=== PATIENT | female | born 1975 | race Caucasian/White ===

== ENCOUNTER 2016-03-31 20:28 | Emergency (ER) | payer MEDICAID ==
[2014-12-09 13:44] VITALS: Ht 144.8 cm; Wt 58.1 kg
[~2016-03-31] VITALS: Ht 144.8 cm; Wt 58.1 kg
[~2016-03-31 20:28] MED LIST: ANXIETY MED; FOLI-43 PO; LIB10 PO; PRO40 PO; THIA100T13 PO
--- NOTE | 2016-03-31 20:28 | NUR ---
Placed in room 01. To gown for exam. Side rails up. Report given to JOSTIN Red.
--- NOTE | 2016-03-31 20:35 | NUR ---
Patient alert and oriented x 4. Came to ER due to hives which started at 1am. Per patient she is 8 weeks that is why she did not take any medications. Denies headache, vomiting or diarrhea. [place] nauseous at times and believes it is from being pregnnant. No acute distress or SOB at this time. Will continue to monitor.
--- NOTE | 2016-03-31 20:45 | NUR ---
ER Dr. Carmona at bedside examining patient.
[2016-03-31 20:59] VITALS: BP 134/78; PULSE 77; RESP 18; TEMP 98.4; O2SAT 97
[2016-03-31] MEDS ORDERED: DIPHENHYDRAMINE HCL 25 MG CAPSULE PO ONE (21:15)
[2016-03-31 21:34] VITALS: BP 129/77; PULSE 76; RESP 19; TEMP 98.3; O2SAT 98
--- NOTE | 2016-03-31 21:34 | NUR ---
Patient given written and verbal discharge instructions and verbalizes understanding. ER MD discussed with patient the results and treatment provided. Patient in stable condition. No acute distress or SOB noted upon discharge. ID arm band removed. Opportunity for questions provided and answered.
== END 2016-03-31 21:34 | disposition home or self-care (01) ==
LOC: SED 20:28
DX: O26.891 Other specified pregnancy related conditions, first trimester (principal); T78.1XXA Other adverse food reactions, not elsewhere classified, initial encounter; Z88.1 Allergy status to other antibiotic agents; Z3A.08 8 weeks gestation of pregnancy; X58.XXXA Exposure to other specified factors, initial encounter
CPT/HCPCS: 99282; Q0163

== ENCOUNTER 2016-04-29 10:58 | Emergency (ER) | payer MEDICAID ==
[2014-12-09 13:44] VITALS: Ht 144.8 cm; Wt 54.4 kg
[~2016-04-29] VITALS: Ht 144.8 cm; Wt 54.4 kg
--- NOTE | 2016-04-29 11:10 | NUR ---
BROUGHT BACK TO BED 4. PT C/O LEFT LOWER QUADRANT PAIN THAT STARTED THIS AM. 11/25. STATSES SHE IS 12 WEEKS , NO VAGINAL BLEEDING AND HAD A MISSCARRIAGE 6 YEARS. TRIOED TO CALL HER OB MD THIS MORNING BUT HE WAS IN SURGERY SO SHE CAMT TO THE ED.
[2016-04-29 11:20] VITALS: BP 122/77; PULSE 70; RESP 16; TEMP 97.8; O2SAT 98
--- NOTE | 2016-04-29 11:35 | NUR ---
ANTONY PATEL IN TO [facility]
[2016-04-29] MEDS ORDERED: NACL 0.9% 1,000 ML IV ONE (11:41)
[2016-04-29 12:01] LABS: BASOPHILS % (AUTO) 0.2 % (0.0-2.0); EOSINOPHILS # (AUTO) 0.1 K/uL (0.0-0.4); EOSINOPHILS % (AUTO) 0.7 % (0.0-4.0); HEMATOCRIT 35.8 % (36-48); LYMPHOCYTES # (AUTO) 1.4 K/uL (1.0-5.5); LYMPHOCYTES % (AUTO) 17.8 % (20.5-51.5); MEAN CORPUSCULAR HEMOGLOBIN 29 pg (27-31); MEAN CORPUSCULAR HGB CONC 34 % (32-36); MEAN CORPUSCULAR VOLUME 86 fL (79.0-98.0); MONOCYTES # (AUTO) 0.4 K/uL (0.0-1.0); MONOCYTES % (AUTO) 5.2 % (1.7-9.3); NEUTROPHILS # (AUTO) 5.7 K/uL (1.8-7.7); NEUTROPHILS % (AUTO) 76.1 % (40.0-70.0); PLATELET COUNT (AUTO) 253 K/uL (130-430); RED BLOOD CELL COUNT(AUTO) 4.15 MIL/uL (4.2-6.2); RED CELL DISTRIBUTION WIDTH 13.1 % (9.0-15.0); WHITE BLOOD COUNT (AUTO) 7.6 K/uL (4.8-10.8)
[2016-04-29 12:02] LABS: CALCIUM 8.9 mg/dL (8.4-11.0); CREATININE 0.45 mg/dL (0.55-1.30); POTASSIUM 3.6 mmol/L (3.5-5.1)
[2016-04-29 12:07] LABS: ALBUMIN 3.3 g/dL (3.4-4.8); INR 0.9 (0.8-1.2); PROTHROMBIN TIME 10.3 SECS (9.5-12.5); TOTAL BILIRUBIN 0.3 mg/dL (0.0-1.0); TOTAL PROTEIN, SERUM 7.2 g/dL (6.4-8.3)
--- NOTE | 2016-04-29 12:15 | NUR ---
ABD US DONE.
[2016-04-29 12:26] LABS: BILIRUBIN,URINE NEGATIVE (NEGATIVE); CLARITY/URINE CLEAR (CLEAR); COLOR,URINE YELLOW (YELLOW); GLUCOSE,URINE NEGATIVE (NEGATIVE); KETONES,URINE 3+ (NEGATIVE); LEUKOCYTE ESTERASE ,URINE NEGATIVE (NEGATIVE); NITRITE, URINE NEGATIVE (NEGATIVE); PH,URINE 6.5 (5.0-8.0); PROTEIN URINE NEGATIVE (NEGATIVE); UROBILINOGEN,URINE 0.2 (0.2-1.0)
[2016-04-29 12:33] LABS: BLOOD, URINE TRACE (NEGATIVE)
[2016-04-29 13:00] VITALS: TEMP 98
[2016-04-29 13:00] LABS: BACTERIA,URINE FEW /HPF (None Seen); RBC,URINE 0-3 /HPF (0-3); WBC,URINE 0-3 /HPF (0-3)
[2016-04-29 13:01] LABS: MUCUS,URINE 1+ /LPF (None Seen)
--- NOTE | 2016-04-29 13:05 | NUR ---
ER MD BACK IN TO SPEAK TO PT ABOUT HER TEST RESULTS. PLAN TO DISCHARGE.
[2016-04-29 13:18] VITALS: BP 125/64; PULSE 75; RESP 16
--- NOTE | 2016-04-29 13:18 | NUR ---
Patient given written and verbal discharge instructions and verbalizes understanding. ER MD discussed with patient the results and treatment provided. Patient in stable condition. ID arm band removed. No Rx GIVEN Patient educated on pain management and to follow up with PMD. Pain Scale [0/10] at this time. Opportunity for questions provided and answered. pt discharged via private auto with her .
== END 2016-04-29 13:18 | disposition home or self-care (01) ==
LOC: SED 10:58
DX: O26.891 Other specified pregnancy related conditions, first trimester (principal); R10.31 Right lower quadrant pain; R10.11 Right upper quadrant pain; Z88.1 Allergy status to other antibiotic agents; Z3A.12 12 weeks gestation of pregnancy
CPT/HCPCS: 36415; 76700; 76805; 80053; 81000; 83690; 84702; 85025; 85610; 85730; 86901; 99285; J7030

== ENCOUNTER 2016-11-29 15:30 | Emergency (ER) | payer MEDICAID ==
[~2016-11-29] VITALS: Ht 144.8 cm; Wt 57.2 kg
[~2016-11-29 15:30] MED LIST changes: -ANXIETY MED; -FOLI-43 PO; -LIB10 PO
[2016-11-29 15:37] VITALS: BP_SYST 115
[2016-11-29] MEDS ORDERED: ONDANSETRON HCL 4 MG/2 ML VIAL IVP ONE (16:45)
[2016-11-29] MEDS ORDERED: MORPHINE 4 MG/ML INJ. SYRINGE IVP ONE (16:45)
[2016-11-29 16:48] LABS: BILIRUBIN,URINE NEGATIVE (NEGATIVE); BLOOD, URINE 3+ (NEGATIVE); CLARITY/URINE CLEAR (CLEAR); COLOR,URINE AMBER (YELLOW); GLUCOSE,URINE NEGATIVE (NEGATIVE); KETONES,URINE NEGATIVE (NEGATIVE); LEUKOCYTE ESTERASE ,URINE 3+ (NEGATIVE); NITRITE, URINE NEGATIVE (NEGATIVE); PH,URINE 8.5 (5.0-8.0); PROTEIN URINE NEGATIVE (NEGATIVE); UROBILINOGEN,URINE 0.2 (0.2-1.0)
[2016-11-29 16:54] LABS: BASOPHILS % (AUTO) 0.1 % (0.0-2.0); EOSINOPHILS % (AUTO) 0.4 % (0.0-4.0); HEMATOCRIT 34.7 % (36-48); HEMOGLOBIN 11.2 g/dL (12.0-16.0); LYMPHOCYTES # (AUTO) 1.2 K/uL (1.0-5.5); LYMPHOCYTES % (AUTO) 11.6 % (20.5-51.5); MEAN CORPUSCULAR HEMOGLOBIN 28 pg (27-31); MEAN CORPUSCULAR HGB CONC 32 % (32-36); MEAN CORPUSCULAR VOLUME 85 fL (79.0-98.0); MONOCYTES # (AUTO) 0.6 K/uL (0.0-1.0); NEUTROPHILS # (AUTO) 8.6 K/uL (1.8-7.7); NEUTROPHILS % (AUTO) 81.9 % (40.0-70.0); PLATELET COUNT (AUTO) 361 K/uL (130-430); RED BLOOD CELL COUNT(AUTO) 4.07 MIL/uL (4.2-6.2); RED CELL DISTRIBUTION WIDTH 14.9 % (9.0-15.0); WHITE BLOOD COUNT (AUTO) 10.4 K/uL (4.8-10.8)
[2016-11-29 17:10] LABS: CALCIUM 9.2 mg/dL (8.4-11.0); CHLORIDE 106 mmol/L (98-107); GLUCOSE 98 mg/dL (70-99); POTASSIUM 3.3 mmol/L (3.5-5.1); SODIUM SERUM 140 mmol/L (136-145); UREA NITROGEN, BLOOD 10 mg/dL (8-21)
[2016-11-29 17:11] LABS: CREATININE 0.62 mg/dL (0.55-1.30)
[2016-11-29 17:12] LABS: ANION GAP < 3 (5-15); GFR AFRICAN AMERICAN 138 mL/min (>90); PROTHROMBIN TIME 10.4 SECS (9.5-12.5)
[2016-11-29 17:24] LABS: ALANINE AMINOTRANSFERASE 9 U/L (12-78); ALBUMIN 3.1 g/dL (3.4-4.8); ASPARTATE AMINOTRANSFERASE 16 U/L (10-37); TOTAL BILIRUBIN 0.4 mg/dL (0.0-1.0)
[2016-11-29 17:27] LABS: BACTERIA,URINE MODERATE /HPF (None Seen)
[2016-11-29] MEDS ORDERED: POTASSIUM CHLORIDE 20 MEQ/PKT PACKET PO ONE (17:30)
[2016-11-29 20:37] LABS: BASOPHILS % (AUTO) 0.3 % (0.0-2.0); EOSINOPHILS # (AUTO) 0.1 K/uL (0.0-0.4); EOSINOPHILS % (AUTO) 0.6 % (0.0-4.0); HEMATOCRIT 35.6 % (36-48); HEMOGLOBIN 11.5 g/dL (12.0-16.0); LYMPHOCYTES # (AUTO) 1.6 K/uL (1.0-5.5); LYMPHOCYTES % (AUTO) 14.3 % (20.5-51.5); MEAN CORPUSCULAR HEMOGLOBIN 28 pg (27-31); MEAN CORPUSCULAR HGB CONC 32 % (32-36); MEAN CORPUSCULAR VOLUME 86 fL (79.0-98.0); MONOCYTES # (AUTO) 0.8 K/uL (0.0-1.0); MONOCYTES % (AUTO) 7.1 % (1.7-9.3); NEUTROPHILS # (AUTO) 8.7 K/uL (1.8-7.7); NEUTROPHILS % (AUTO) 77.7 % (40.0-70.0); PLATELET COUNT (AUTO) 386 K/uL (130-430); RED BLOOD CELL COUNT(AUTO) 4.13 MIL/uL (4.2-6.2); RED CELL DISTRIBUTION WIDTH 15.1 % (9.0-15.0); WHITE BLOOD COUNT (AUTO) 11.2 K/uL (4.8-10.8)
[2016-11-29 21:15] VITALS: BP_SYST 119
[2016-11-29] MEDS ORDERED: POTASSIUM CHLORIDE 20 MEQ TAB.PRT.SR PO ONE (21:15)
[2016-11-29] MEDS ORDERED: CIPROFLOXACIN HCL 500 MG TABLET PO ONE (21:15)
== END 2016-11-29 21:34 | disposition home or self-care (01) ==
LOC: SED 15:30
DX: O72.2 Delayed and secondary postpartum hemorrhage (principal); Z88.1 Allergy status to other antibiotic agents
CPT/HCPCS: 36415; 74000; 76856; 80053; 81000; 81025; 83970; 85025; 85610; 86886; 86900; 86901; 87086; 87186; 96374; 96375; 99285; J2270; J2405; J7030

== ENCOUNTER 2017-09-21 11:38 | Emergency (ER) | payer MEDICAID ==
[~2017-09-21] VITALS: Ht 144.8 cm; Wt 57.6 kg
[2017-09-21 11:41] VITALS: BP_SYST 119
[2017-09-21 12:56] LABS: BASOPHILS # (AUTO) 0.1 K/uL (0.0-0.2); BASOPHILS % (AUTO) 0.7 % (0.0-2.0); EOSINOPHILS # (AUTO) 0.1 K/uL (0.0-0.4); EOSINOPHILS % (AUTO) 0.7 % (0.0-4.0); HEMATOCRIT 37.3 % (36-48); HEMOGLOBIN 12.6 g/dL (12.0-16.0); LYMPHOCYTES # (AUTO) 1.7 K/uL (1.0-5.5); LYMPHOCYTES % (AUTO) 17.7 % (20.5-51.5); MEAN CORPUSCULAR HEMOGLOBIN 29 pg (27-31); MEAN CORPUSCULAR HGB CONC 34 % (32-36); MEAN CORPUSCULAR VOLUME 86 fL (79.0-98.0); MONOCYTES # (AUTO) 0.5 K/uL (0.0-1.0); NEUTROPHILS # (AUTO) 7.1 K/uL (1.8-7.7); NEUTROPHILS % (AUTO) 75.9 % (40.0-70.0); PLATELET COUNT (AUTO) 352 K/uL (130-430); RED BLOOD CELL COUNT(AUTO) 4.36 MIL/uL (4.2-6.2); RED CELL DISTRIBUTION WIDTH 13.1 % (9.0-15.0); WHITE BLOOD COUNT (AUTO) 9.4 K/uL (4.8-10.8)
[2017-09-21 13:10] LABS: CALCIUM 9.2 mg/dL (8.4-11.0); CREATININE 0.4 mg/dL (0.55-1.30); POTASSIUM 4.1 mmol/L (3.5-5.1)
[2017-09-21 13:12] LABS: PROTHROMBIN TIME 9.7 SECS (9.5-12.5)
[2017-09-21] MEDS ORDERED: ACETAMINOPHEN 500 MG TABLET PO ONE (13:15)
[2017-09-21 13:17] LABS: ALBUMIN 3.5 g/dL (3.4-4.8); TOTAL BILIRUBIN 0.1 mg/dL (0.0-1.0)
[2017-09-21 14:08] VITALS: BP_SYST 120
== END 2017-09-21 14:08 | disposition home or self-care (01) ==
LOC: SED 11:38
DX: O26.891 Other specified pregnancy related conditions, first trimester (principal); R07.89 Other chest pain; M79.602 Pain in left arm; Z88.1 Allergy status to other antibiotic agents; Z88.8 Allergy status to other drugs, medicaments and biological substances; Z79.899 Other long term (current) drug therapy; Z3A.11 11 weeks gestation of pregnancy
CPT/HCPCS: 36415; 80053; 82550-TC; 83880; 84484; 85025; 85610-TC; 85730-TC; 93005; 99285

== ENCOUNTER 2017-10-09 17:32 | Emergency (ER) | payer MEDICAID ==
[~2017-10-09] VITALS: Ht 144.8 cm; Wt 56.7 kg
[2017-10-09 17:36] VITALS: BP_SYST 128
[2017-10-09] MEDS ORDERED: ONDANSETRON 4 MG ODT TAB PO ONE (18:15)
[2017-10-09 18:47] VITALS: BP_SYST 121
== END 2017-10-09 18:47 | disposition home or self-care (01) ==
LOC: SED 17:32
DX: O21.0 Mild hyperemesis gravidarum (principal); Z3A.11 11 weeks gestation of pregnancy; Z88.1 Allergy status to other antibiotic agents; Z88.8 Allergy status to other drugs, medicaments and biological substances; Z79.899 Other long term (current) drug therapy
CPT/HCPCS: 81025; 99283; Q0162

== ENCOUNTER 2018-10-16 18:50 | Emergency (ER) | payer MEDICAID ==
[~2018-10-16] VITALS: Ht 144.8 cm; Wt 53.5 kg
[2018-10-16 19:00] VITALS: BP_SYST 122
[2018-10-16] MEDS ORDERED: NACL 0.9% 1,000 ML IV ONE (19:42)
[2018-10-16 20:15] LABS: BILIRUBIN,URINE NEGATIVE (NEGATIVE); BLOOD, URINE 1+ (NEGATIVE); CLARITY/URINE CLEAR (CLEAR); COLOR,URINE YELLOW (YELLOW); GLUCOSE,URINE NEGATIVE (NEGATIVE); KETONES,URINE NEGATIVE (NEGATIVE); LEUKOCYTE ESTERASE ,URINE NEGATIVE (NEGATIVE); NITRITE, URINE NEGATIVE (NEGATIVE); PROTEIN URINE NEGATIVE (NEGATIVE); UROBILINOGEN,URINE 0.2 (0.2-1.0)
[2018-10-16 20:16] LABS: BASOPHILS % (AUTO) 0.2 % (0.0-2.0); EOSINOPHILS # (AUTO) 0.1 K/uL (0.0-0.4); EOSINOPHILS % (AUTO) 1.3 % (0.0-4.0); HEMATOCRIT 36.6 % (36-48); HEMOGLOBIN 12.1 g/dL (12.0-16.0); LYMPHOCYTES # (AUTO) 1.3 K/uL (1.0-5.5); MEAN CORPUSCULAR HEMOGLOBIN 29 pg (27-31); MEAN CORPUSCULAR HGB CONC 33 % (32-36); MEAN CORPUSCULAR VOLUME 87 fL (79.0-98.0); MONOCYTES # (AUTO) 0.5 K/uL (0.0-1.0); MONOCYTES % (AUTO) 12.7 % (1.7-9.3); NEUTROPHILS # (AUTO) 2.1 K/uL (1.8-7.7); NEUTROPHILS % (AUTO) 52.8 % (40.0-70.0); PLATELET COUNT (AUTO) 233 K/uL (130-430); RED BLOOD CELL COUNT(AUTO) 4.23 MIL/uL (4.2-6.2); RED CELL DISTRIBUTION WIDTH 13.6 % (9.0-15.0); WHITE BLOOD COUNT (AUTO) 3.9 K/uL (4.8-10.8)
[2018-10-16] MEDS ORDERED: MORPHINE 2 MG/ML INJ. SYRINGE IVP ONE (20:30)
[2018-10-16 20:34] LABS: CALCIUM 8.5 mg/dL (8.4-11.0); CREATININE 0.49 mg/dL (0.55-1.30)
[2018-10-16 20:38] LABS: ALBUMIN 3.4 g/dL (3.4-4.8); TOTAL BILIRUBIN 0.2 mg/dL (0.0-1.0)
[2018-10-16 20:42] LABS: POTASSIUM 2.8 mmol/L (3.5-5.1)
[2018-10-16] MEDS ORDERED: ONDANSETRON HCL 4 MG/2 ML VIAL IVP ONE (20:45)
[2018-10-16] MEDS ORDERED: ONDANSETRON HCL 4 MG/2 ML VIAL ONE (20:48)
[2018-10-16] MEDS ORDERED: POTASSIUM CHLORIDE 10 MEQ TAB.PRT.SR PO ONE (21:00)
[2018-10-16 21:01] LABS: RBC,URINE 0-3 /HPF (0-3); WBC,URINE 0-3 /HPF (0-3)
[2018-10-16 21:02] LABS: BACTERIA,URINE FEW /HPF (None Seen); MUCUS,URINE None Seen /LPF (None Seen)
[2018-10-16 22:13] LABS: CALCIUM 7.9 mg/dL (8.4-11.0); CREATININE 0.51 mg/dL (0.55-1.30); POTASSIUM 3.1 mmol/L (3.5-5.1)
[2018-10-16 22:15] VITALS: BP_SYST 124
== END 2018-10-16 22:15 | disposition home or self-care (01) ==
LOC: SED 18:50
DX: E86.0 Dehydration (principal); K52.9 Noninfective gastroenteritis and colitis, unspecified; Z88.1 Allergy status to other antibiotic agents; Z88.8 Allergy status to other drugs, medicaments and biological substances; Z79.899 Other long term (current) drug therapy
CPT/HCPCS: 36415; 80048; 80053; 81000; 81025; 83690; 85025; 85610; 96374; 96375; 99283; J2270; J2405; J7030

== ENCOUNTER 2019-10-31 12:09 | Emergency (ER) | payer MEDICAID ==
[~2019-10-31] VITALS: Ht 144.8 cm; Wt 58.1 kg
[2019-10-31 12:21] VITALS: BP_SYST 121
--- NOTE | 2019-10-31 12:21 | NUR ---
Patient to ER bed 5 to gown for evaluation. Side rails up. Report given to JOSTIN Tesfaye.
--- NOTE | 2019-10-31 12:30 | NUR ---
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 Pt VSS, no distress, no complaints, md to assess.
--- NOTE | 2019-10-31 12:40 | NUR ---
ER at bedside examining patient.
[2019-10-31 12:45] VITALS: BP_SYST 121
--- NOTE | 2019-10-31 15:27 | NUR ---
Patient given written and verbal discharge instructions and verbalizes understanding. ER MD discussed with patient the results and treatment provided. Patient in stable condition. ID arm band removed. Patient educated on pain management and to follow up with PMD. Pain Scale 0/10. Opportunity for questions provided and answered. Medication side effect fact sheet provided.
--- NOTE | 2019-11-03 13:10 | NUR ---
Covid results Patient called requesting results - ID [id number], exam 10/31/19 - results are negative. Pt verbalized complete understanding.
== END 2019-10-31 12:45 | disposition home or self-care (01) ==
LOC: SED 12:09
DX: A08.4 Viral intestinal infection, unspecified (principal); Z20.828 Contact with and (suspected) exposure to other viral communicable diseases; Z88.1 Allergy status to other antibiotic agents; Z79.899 Other long term (current) drug therapy
CPT/HCPCS: 99283; C9803; U0003

== ENCOUNTER 2020-09-12 17:38 | Emergency (ER) | payer OTHER, MEDICAID ==
[~2020-09-12] VITALS: Ht 144.8 cm; Wt 58.1 kg
[2020-09-12 17:48] VITALS: BP_SYST 130
[2020-09-12] MEDS ORDERED: NACL 0.9% 1,000 ML IV ONE (18:45)
[2020-09-12 19:08] LABS: BASOPHILS % (AUTO) 0.3 % (0.0-2.0); EOSINOPHILS % (AUTO) 0.6 % (0.0-4.0); HEMATOCRIT 36.3 % (36-48); HEMOGLOBIN 12.1 g/dL (12.0-16.0); LYMPHOCYTES # (AUTO) 1.6 K/uL (1.0-5.5); LYMPHOCYTES % (AUTO) 23.5 % (20.5-51.5); MEAN CORPUSCULAR HEMOGLOBIN 28 pg (27-31); MEAN CORPUSCULAR HGB CONC 33 % (32-36); MEAN CORPUSCULAR VOLUME 85 fL (79.0-98.0); MONOCYTES # (AUTO) 0.4 K/uL (0.0-1.0); MONOCYTES % (AUTO) 6.3 % (1.7-9.3); NEUTROPHILS # (AUTO) 4.8 K/uL (1.8-7.7); NEUTROPHILS % (AUTO) 69.3 % (40.0-70.0); PLATELET COUNT (AUTO) 282 K/uL (130-430); RED BLOOD CELL COUNT(AUTO) 4.28 MIL/uL (4.2-6.2); RED CELL DISTRIBUTION WIDTH 14.6 % (9.0-15.0); WHITE BLOOD COUNT (AUTO) 6.9 K/uL (4.8-10.8)
[2020-09-12 19:09] LABS: BILIRUBIN,URINE NEGATIVE (NEGATIVE); CLARITY/URINE CLEAR (CLEAR); GLUCOSE,URINE NEGATIVE (NEGATIVE); KETONES,URINE NEGATIVE (NEGATIVE); LEUKOCYTE ESTERASE ,URINE NEGATIVE (NEGATIVE); NITRITE, URINE NEGATIVE (NEGATIVE); PROTEIN URINE NEGATIVE (NEGATIVE); UROBILINOGEN,URINE 0.2 (0.2-1.0)
[2020-09-12 19:21] LABS: BLOOD, URINE TRACE (NEGATIVE); COLOR,URINE STRAW (YELLOW)
[2020-09-12 19:26] LABS: PROTHROMBIN TIME 10.4 SECS (9.5-12.5)
[2020-09-12 19:28] LABS: ALANINE AMINOTRANSFERASE 13 U/L (12-78); ALBUMIN 3.9 g/dL (3.4-4.8); ANION GAP 8 (5-15); ASPARTATE AMINOTRANSFERASE 11 U/L (10-37); CHLORIDE 108 mmol/L (98-107); CREATININE 0.55 mg/dL (0.55-1.30); GLUCOSE 95 mg/dL (70-99); POTASSIUM 3.6 mmol/L (3.5-5.1); SODIUM SERUM 146 mmol/L (136-145); TOTAL BILIRUBIN 0.3 mg/dL (0.0-1.0); UREA NITROGEN, BLOOD 12 mg/dL (8-21)
[2020-09-12 19:37] LABS: GFR AFRICAN AMERICAN 155 mL/min (>90)
[2020-09-12 19:39] LABS: BARBITURATE, URINE NEGATIVE (NEG <=200); BENZODIAZEPINE, URINE NEGATIVE (NEG <=150); CANNABINOID, URINE NEGATIVE (NEG <=50); COCAINE, URINE NEGATIVE (NEG <=150); METHAMPHETAMINES SCREEN,URINE NEGATIVE (NEG <=500); OPIATE, URINE NEGATIVE (NEG <=100); PHENCYCLIDINE SCREEN,URINE NEGATIVE (NEG <=25); UR TRICYCLIC ANTIDEPRESSANTS NEGATIVE (NEG <=300); URINE AMPHETAMINE NEGATIVE (NEG <=500); URINE METHADONE NEGATIVE (NEG <=200); URINE OXYCODONE SCREEN NEGATIVE (NEG <=100); URINE PROPOXYPHENE SCREEN NEGATIVE (NEG <=300)
[2020-09-12 19:45] VITALS: BP_SYST 113
[2020-09-12 20:05] LABS: BACTERIA,URINE RARE /HPF (None Seen); MUCUS,URINE None Seen /LPF (None Seen); RBC,URINE 0-3 /HPF (0-3); WBC,URINE 0-3 /HPF (0-3)
[2020-09-12 20:41] LABS: ACETAMINOPHEN < 1 ug/mL (1-30); ALCOHOL, BLOOD < 3 mg/dL (<10)
== END 2020-09-12 19:45 | disposition home or self-care (01) ==
LOC: SED 17:38
DX: T45.0X1A Poisoning by antiallergic and antiemetic drugs, accidental (unintentional), initial encounter (principal); Z88.1 Allergy status to other antibiotic agents; Z79.899 Other long term (current) drug therapy; Y92.89 Other specified places as the place of occurrence of the external cause
CPT/HCPCS: 36415; 71045; 80053; 80307; 81000; 84484; 85025; 85610; 85730; 96360; 99284; G0480; J7030; G0481; G0482

== ENCOUNTER 2020-11-13 11:46 | Emergency (ER) | payer OTHER, MEDICAID ==
[~2020-11-13] VITALS: Ht 144.8 cm; Wt 56.7 kg
[2020-11-13 11:53] VITALS: BP_SYST 137
[2020-11-13] MEDS ORDERED: KETOROLAC TROMETHAMINE 60 MG/2 ML VIAL IM ONE (12:45)
[2020-11-13 13:01] LABS: BASOPHILS % (AUTO) 0.3 % (0.0-2.0); EOSINOPHILS # (AUTO) 0.1 K/uL (0.0-0.4); EOSINOPHILS % (AUTO) 0.8 % (0.0-4.0); HEMATOCRIT 36.3 % (36-48); HEMOGLOBIN 12.4 g/dL (12.0-16.0); LYMPHOCYTES # (AUTO) 1.8 K/uL (1.0-5.5); LYMPHOCYTES % (AUTO) 24.1 % (20.5-51.5); MEAN CORPUSCULAR HEMOGLOBIN 29 pg (27-31); MEAN CORPUSCULAR HGB CONC 34 % (32-36); MEAN CORPUSCULAR VOLUME 85 fL (79.0-98.0); MONOCYTES # (AUTO) 0.5 K/uL (0.0-1.0); MONOCYTES % (AUTO) 6.4 % (1.7-9.3); NEUTROPHILS # (AUTO) 5.2 K/uL (1.8-7.7); NEUTROPHILS % (AUTO) 68.4 % (40.0-70.0); PLATELET COUNT (AUTO) 276 K/uL (130-430); RED BLOOD CELL COUNT(AUTO) 4.28 MIL/uL (4.2-6.2); WHITE BLOOD COUNT (AUTO) 7.6 K/uL (4.8-10.8)
[2020-11-13 13:08] LABS: CALCIUM 8.9 mg/dL (8.4-11.0); CREATININE 0.57 mg/dL (0.55-1.30)
[2020-11-13 13:13] LABS: ALBUMIN 3.7 g/dL (3.4-4.8); TOTAL BILIRUBIN 0.2 mg/dL (0.0-1.0)
[2020-11-13] MEDS ORDERED: TRAM50TA PO (13:44)
[2020-11-13 14:02] VITALS: BP_SYST 119
== END 2020-11-13 14:01 | disposition home or self-care (01) ==
LOC: SED 11:46
DX: K80.50 Calculus of bile duct without cholangitis or cholecystitis without obstruction (principal); Z88.1 Allergy status to other antibiotic agents; Z88.8 Allergy status to other drugs, medicaments and biological substances; Z79.899 Other long term (current) drug therapy
CPT/HCPCS: 36415; 76700; 80053; 83690; 85025; 96372; 99284; J1885

== ENCOUNTER 2021-11-06 21:57 | Emergency (ER) | payer MEDICAID, OTHER ==
[~2021-11-06] VITALS: Ht 149.9 cm; Wt 63.5 kg
[~2021-11-06 21:57] MED LIST changes: +TRAM50TA PO
[2021-11-06 22:21] VITALS: BP_SYST 140
[2021-11-06] MEDS ORDERED: MAG HYDROX/AL HYDROX/SIMETH 30 ML, DICYCLOMINE HCL 20 MG, LIDOCAINE VISCOUS 2% 15ML (PO... PO ONE ×3 (22:45)
[2021-11-06] MEDS ORDERED: ACETAMINOPHEN 500 MG TABLET PO ONE (22:45)
[2021-11-06 23:28] LABS: BASOPHILS # (AUTO) 0.1 K/uL (0.0-0.2); BASOPHILS % (AUTO) 1.3 % (0.0-2.0); EOSINOPHILS # (AUTO) 0.1 K/uL (0.0-0.4); EOSINOPHILS % (AUTO) 0.9 % (0.0-4.0); LYMPHOCYTES # (AUTO) 2.2 K/uL (1.0-5.5); MEAN CORPUSCULAR VOLUME 85 fL (79.0-98.0); MONOCYTES # (AUTO) 0.5 K/uL (0.0-1.0); MONOCYTES % (AUTO) 6.4 % (1.7-9.3); NEUTROPHILS # (AUTO) 4.5 K/uL (1.8-7.7); NEUTROPHILS % (AUTO) 61.4 % (40.0-70.0); PLATELET COUNT (AUTO) 291 K/uL (130-430); RED BLOOD CELL COUNT(AUTO) 4.48 MIL/uL (4.2-6.2); RED CELL DISTRIBUTION WIDTH 13.7 % (9.0-15.0); WHITE BLOOD COUNT (AUTO) 7.3 K/uL (4.8-10.8)
[2021-11-06 23:57] LABS: CALCIUM 9.9 mg/dL (8.4-11.0); CREATININE 0.66 mg/dL (0.55-1.30); POTASSIUM 3.8 mmol/L (3.5-5.1)
[2021-11-07 00:03] LABS: ALBUMIN 3.9 g/dL (3.4-4.8); TOTAL BILIRUBIN 0.2 mg/dL (0.0-1.0)
[2021-11-07] MEDS ORDERED: PRO40 PO (01:14)
[2021-11-07] MEDS ORDERED: ONDA-8 TL (01:26)
[2021-11-07] MEDS ORDERED: MORPHINE 2 MG/ML INJ. SYRINGE IVP ONE (01:30)
[2021-11-07] MEDS ORDERED: ONDANSETRON HCL 4 MG/2 ML VIAL IVP ONE (01:30)
[2021-11-07 01:45] VITALS: BP_SYST 137
== END 2021-11-07 01:45 | disposition home or self-care (01) ==
LOC: SED 21:57
DX: R10.13 Epigastric pain (principal); R11.0 Nausea; Z88.1 Allergy status to other antibiotic agents; Z79.899 Other long term (current) drug therapy
CPT/HCPCS: 99284; 80053; 83690; 85025; 36415; 81025; 74176; 96374; 96375; 76376; J2001; J2405; J2270

== ENCOUNTER 2022-12-15 15:57 | Emergency (ER) | payer MEDICAID ==
[~2022-12-15] VITALS: Ht 144.8 cm; Wt 52.6 kg
[~2022-12-15 15:57] MED LIST changes: +ONDA-8 TL
[2022-12-15 16:09] VITALS: BP_SYST 135; PULSE 88; RESP 18; TEMP 98.3; O2SAT 96
[2022-12-15 16:55] LABS: WHITE BLOOD COUNT (AUTO) 7.1 K/uL (4.8-10.8)
[2022-12-15 16:56] LABS: CALCIUM 9.4 mg/dL (8.4-11.0); CREATININE 0.76 mg/dL (0.55-1.30); POTASSIUM 4.4 mmol/L (3.5-5.1)
[2022-12-15 17:02] LABS: HEMOGLOBIN 12.6 g/dL (12.0-16.0)
[2022-12-15 17:07] LABS: BASOPHILS % (AUTO) 0.3 % (0.0-2.0); EOSINOPHILS # (AUTO) 0.1 K/uL (0.0-0.4); EOSINOPHILS % (AUTO) 0.8 % (0.0-4.0); HEMATOCRIT 38.4 % (36-48); LYMPHOCYTES % (AUTO) 28.1 % (20.5-51.5); MEAN CORPUSCULAR HEMOGLOBIN 28 pg (27-31); MEAN CORPUSCULAR HGB CONC 33 % (32-36); MEAN CORPUSCULAR VOLUME 86 fL (79.0-98.0); MONOCYTES # (AUTO) 0.5 K/uL (0.0-1.0); MONOCYTES % (AUTO) 6.8 % (1.7-9.3); NEUTROPHILS # (AUTO) 4.5 K/uL (1.8-7.7); PLATELET COUNT (AUTO) 292 K/uL (130-430); RED BLOOD CELL COUNT(AUTO) 4.49 MIL/uL (4.2-6.2); RED CELL DISTRIBUTION WIDTH 13.5 % (9.0-15.0)
[2022-12-15 17:10] LABS: TOTAL BILIRUBIN 0.4 mg/dL (0.0-1.0); TOTAL PROTEIN, SERUM 7.3 g/dL (6.4-8.3)
[2022-12-15 17:15] LABS: BILIRUBIN,URINE NEGATIVE (NEGATIVE); CLARITY/URINE CLEAR (CLEAR); GLUCOSE,URINE TRACE (NEGATIVE); KETONES,URINE NEGATIVE (NEGATIVE); LEUKOCYTE ESTERASE ,URINE NEGATIVE (NEGATIVE); NITRITE, URINE POSITIVE (NEGATIVE); PROTEIN URINE NEGATIVE (NEGATIVE); UROBILINOGEN,URINE 0.2 (0.2-1.0)
[2022-12-15 17:40] LABS: BLOOD, URINE TRACE (NEGATIVE); COLOR,URINE YELLOW (YELLOW)
[2022-12-15 17:45] LABS: BACTERIA,URINE FEW /HPF (None Seen); MUCUS,URINE None Seen /LPF (None Seen); WBC,URINE 0-3 /HPF (0-3)
[2022-12-15] MEDS ORDERED: cefTRIAXone 1 GM in LIDOCAINE 1%, 20 ML MDV 2.1 ML IM ONE (18:30)
[2022-12-15 19:30] VITALS: BP_SYST 135; PULSE 88; RESP 18; TEMP 98.3; O2SAT 96
== END 2022-12-15 19:37 | disposition home or self-care (01) ==
LOC: SED 15:57
DX: N39.0 Urinary tract infection, site not specified (principal); R10.30 Lower abdominal pain, unspecified; R30.0 Dysuria; R35.0 Frequency of micturition; Z88.1 Allergy status to other antibiotic agents; Z79.899 Other long term (current) drug therapy
CPT/HCPCS: 99285; 74176; 80053; 81001; 85025; 87086; 36415; 76376; 81025; 96372; 83605; 82397; 81000; 81015; J0696; J2001